=== PATIENT | female | born 1980 | race Two or more races ===

== ENCOUNTER 2024-04-11 20:54 | Emergency (ER) | payer MEDICARE, MEDICAID, SELFPAY ==
[2024-04-11 20:58] VITALS: PULSE 110; RESP 20; O2SAT 98
--- NOTE | 2024-04-11 21:04 | PC.NURSE ---
PATIENTS SON TESTED POSITIVE FOR INFLUENZA B
[2024-04-11 21:13] VITALS: BP 122/82; PULSE 96; RESP 20; TEMP 36.8; O2SAT 99; BMI 41.0
--- NOTE | 2024-04-11 21:21 | EKG_ITS ---
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1980 Requested By: Gilberto Valdovinos ([facility]) Order Number: [id number] Reading MD: Gilberto Valdovinos ([facility]) Measurements Intervals [place] Rate: 102 P: 63 TX: 184 QRS: 1 QRSD: 103 T: 59 QT: 277 QTc: 361 Interpretive Statements SINUS TACHYCARDIA POSSIBLE LEFT ATRIAL ENLARGEMENT [-0.1mV P WAVE IN V1/V2] LOW QRS VOLTAGE IN PRECORDIAL LEADS [QRS DEFLECTION < 1.0 mV IN CHEST LEADS] POSSIBLE ANTERIOR MYOCARDIAL INFARCTION , OF INDETERMINATE AGE [30 ms Q WAVE IN V3/V4, OR R < 0.2 mV IN V4] Compared to ECG 06/13/2017 10:38:08 Low QRS voltage now present Myocardial infarct finding now present Sinus rhythm no longer present T-wave abnormality no longer present /store/S0/[id number]/ecg/[id number].pdf
--- NOTE | 2024-04-11 21:21 | XR_ITS ---
Examination: AP lateral chest 2 views Technique: Sitting AP lateral chest 2 views Indications: Chest pain today. Findings: Normal heart size Minor atelectasis left base No lobar pneumonia or pulmonary edema Impression: No pneumonia or pulmonary edema
--- NOTE | 2024-04-11 21:22 | PD.EDRME ---
Rapid Medical Screening Exam RME Arrival date/time: 04/11/24 20:54 44-year-old female presents emergency department complaining of shortness of breath, chest pain, and vomiting. Time Seen by Provider: 04/11/24 21:19 Vital signs: Vital Signs Temperature 98.3 F 04/11/24 21:13 Pulse Rate 96 04/11/24 21:13 Respiratory Rate 20 04/11/24 21:13 Blood Pressure 122/82 04/11/24 21:13 Pulse Oximetry (%) 99 04/11/24 21:13 Oxygen Delivery Method Room Air 04/11/24 21:13 Vital signs reviewed by provider: Yes
[2024-04-11 21:48] LABS: Basophils % (Auto) 0 % (0-2.5); Eosinophils % (Auto) 0 % (0-10); Hematocrit 42.6 % (36.0-46.0); Hemoglobin 13.9 g/dL (12.0-16.0); Immature Granulocytes % (Auto) 1 % (0-0); Immature Granulocytes Auto 0.06 Thou/mm3 (0.00-0.00); Lymphocytes # (Auto) 0.3 Thou/mm3 (1.0-4.8); Lymphocytes % (Auto) 3 % (10-50); Mean Corpuscular HGB Conc 32.6 g/dl (31.0-37.0); Mean Corpuscular Hemoglobin 27.7 pg (25.0-35.0); Mean Corpuscular Volume 85 fL (80-100); Monocytes # (Auto) 0.6 Thou/mm3 (0.0-0.8); Monocytes % (Auto) 6 % (0-12); Neutrophils # (Auto) 7.7 Thou/mm3 (1.8-7.7); Neutrophils % (Auto) 89 % (37-80); Nucleated Red Blood Cell % 0 /100 WBC (0); Platelet Count 239 Thou/mm3 (140-440); RDW Standard Deviation 42.5 fL (36.4-46.3); Red Blood Count 5.01 Miln/mm3 (4.00-5.20); White Blood Count 8.7 Thou/mm3 (3.6-11.0)
[2024-04-11 22:12] LABS: INR 1.1 (0.9-1.3); Partial Thromboplastin Time 25.5 Seconds (22.0-36.0); Prothrombin Time 11.9 Seconds (9.0-12.2)
[2024-04-11 22:22] LABS: B-Type Natriuretic Peptide 33 pg/mL (0-100)
[2024-04-11 22:33] LABS: HCG,Qualitative Serum Negative
[2024-04-11 22:45] LABS: Influenza A Ag Negative; Influenza B Ag Positive
[2024-04-12 00:17] LABS: Alanine Aminotransferase 20 U/L (10-49); Albumin, Serum 4.8 gm/dL (3.5-5.0); Albumin/Globulin Ratio 1.3 (1.2-2.2); Alkaline Phosphatase 110 U/L (46-116); Anion Gap 10 (7-16); Aspartate Amino Transferase 30 U/L (0-34); BUN/Creatinine Ratio 18 Ratio (12-20); Bilirubin,Total 0.3 mg/dL (0.3-1.2); Blood Urea Nitrogen 7 mg/dL (9-23); Calcium 9.5 mg/dL (8.3-10.6); Calcium (Corrected) 9.5 mg/dL (8.5-10.1); Carbon Dioxide 22.7 mMol/L (20.0-31.0); Chloride 100 mMol/L (98-107); Creatinine (Component) 0.4 mg/dL (0.6-1.3); Estimated Creatinine Clearance 183.4 mL/min (>60); Globulin 3.7 gm/dL (2.3-3.5); Glucose 131 mg/dL (74-106); Magnesium 1.8 mg/dL (1.6-2.6); Osmolality,Calculated 266 (275-295); Potassium 3.5 mMol/L (3.4-5.1); Sodium 133 mMol/L (136-145); Total Protein 8.5 gm/dL (5.7-8.2); Troponin I < 0.002 ng/mL (0.0-0.045); eGFR > 60 See Note
--- NOTE | 2024-04-12 00:20 | PD.EDSOB ---
ED SOB =RME/HPI General Chief Complaint: Flu Like Symptoms Stated Complaint: FLU LIKE SYMTOMS Time Seen by Provider: 04/11/24 21:19 Source: patient Arrival date/time: 04/11/24 20:54 44-year-old female presents emergency department complaining of shortness of breath, chest pain, and vomiting. Patient reports son recently tested positive for influenza. Mode of arrival: wheelchair Limitations: physical limitation RME / HPI RME / HPI Narrative: 04/11/24 20:54 44-year-old female presents emergency department complaining of shortness of breath, chest pain, and vomiting. Related Data Home Medications ?Medication ?Instructions ?Recorded ?Confirmed carisoprodol 350 mg tablet 350 mg PO BID md #0 tabs 02/26/14 tramadol 50 mg tablet (Ultram) 50 mg PO Q4HR PRN PAIN (MODERATE 02/26/14 TO SEVERE) #0 tabs amitriptyline ##0 02/27/14 metformin 1,000 mg tablet,extended 1,000 mg PO QDAY 08/03/17 release 24hr (osmotic) sertraline 20 mg/mL oral 12.5 mg PO QDAY 08/03/17 concentrate Previous Rx's ?Medication ?Instructions ?Recorded ciprofloxacin HCl 0.3 % eye drops 2 drop ophthalmic (eye) Q4H #5 mL 08/03/17 acetaminophen 500 mg capsule 500 mg PO Q6H PRN pain #30 caps 04/12/24 ibuprofen 600 mg tablet 600 mg PO Q8H PRN pain #20 tabs 04/12/24 Allergies Allergy/AdvReac Type Severity Reaction Status Date / Time No Known Allergies Allergy Unknown Uncoded 02/27/14 13:17 Review of Systems Review of Systems Systems Reviewed: All systems reviewed, normal except as documented Constitutional Constitutional: Reports system reviewed and no additional complaints, except as documented, Denies body ache(s), Denies chills and Denies fever(s) Eyes Eyes: Reports system reviewed and no additional complaints, except as documented and Denies change in vision ENT Ears, Nose, Mouth, and Throat: Reports system reviewed and no additional complaints, except as documented, Denies disequilibrium, Denies dizziness, Denies sore throat and Denies vertigo Cardiovascular Cardiovascular: Reports system reviewed and no additional complaints, except as documented, Reports chest pain and Reports dyspnea Respiratory Respiratory: Reports system reviewed and no additional complaints, except as documented, Denies chest congestion, Denies cough and Reports dyspnea Gastrointestinal Gastrointestinal: Reports system reviewed and no additional complaints, except as documented, Denies abdominal pain, Reports nausea and Reports vomiting Musculoskeletal Musculoskeletal: Reports system reviewed and no additional complaints, except as documented, Denies abnormal gait and Denies arthralgias Integumentary/Breasts Skin/Breast: Reports system reviewed and no additional complaints, except as documented, Denies erythema, Denies rash and Denies wounds Neurologic Neurologic: Reports system reviewed and no additional complaints, except as documented, Denies abnormal gait, Denies disequilibrium, Denies dizziness and Denies vertigo Past Medical History Past Medical History CARDIAC: Negative Cardiac Disorders or Congestive Heart Failure RESPIRATORY: Negative Chronic Obstructive Pulmonary Disease (COPD) or Asthma GENITOURINARY: Negative Renal Disease ENDOCRINE: Positive Diabetes Mellitus Type 2; Negative Diabetes Mellitus Type 1 HEMATOLOGIC: Negative Sickle Cell Disease Social History SMOKING STATUS: Never smoker ED Exam General Limitations: Present physical limitation General appearance: Present alert and in no apparent distress Head Head exam: Present atraumatic Eye Eye exam: Present normal appearance, PERRL and EOMI ENT ENT exam: Present normal exam, normal oropharynx and mucous membranes moist Neck Neck exam: Present normal inspection, full ROM and trachea midline Chest Chest inspection: Present normal inspection and symmetric chest wall rise Respiratory Respiratory exam: Present normal lung sounds bilaterally Cardiovascular Cardiovascular exam: Present regular rate, normal rhythm and normal heart sounds Abdominal Exam Abdominal exam: Present soft and normal bowel sounds Extremities Exam Extremities exam: Present normal inspection and full ROM Back Exam Back exam: Present normal inspection and full ROM Neurological Exam Neurological exam: Present alert, oriented X3 and CN II-XII intact Psychiatric Psychiatric exam: Present normal affect and normal mood Skin Skin exam: Present warm, dry, intact and normal color Course Quality Measures none Orders Category Date Time Status Bedside COVID-19 Antigen Test NOW Care 04/11/24 21:22 Completed EKG (ED ONLY) *Do not use* NOW Care 04/11/24 21:21 Completed EKG (ED Only) Stat Exams 04/11/24 21:21 Draft XR chest 2V Stat Exams 04/11/24 21:21 Completed B-Type Natriuretic Peptide Stat Lab 04/11/24 21:41 Completed CBC Stat Lab 04/11/24 21:41 Completed Comprehensive Metabolic Panel Stat Lab 04/11/24 21:41 Completed Drug Screen,Urine Stat Lab 04/12/24 00:22 Completed HCG,Qualitative Serum Stat Lab 04/11/24 21:41 Completed Influenza A & B Rapid Panel Stat Lab 04/11/24 21:35 Completed Magnesium Stat Lab 04/11/24 21:41 Completed Partial Thromboplastin Time Stat Lab 04/11/24 21:41 Completed Prothrombin Time with INR Stat Lab 04/11/24 21:41 Completed Troponin I Stat Lab 04/11/24 21:41 Completed Urinalysis Stat Lab 04/12/24 00:22 Completed Ketorolac Inj [Toradol Inj] Med 04/12/24 00:19 Discontinued 30 mg IM X1 ONE Vital Signs Vital signs: Vital Signs Temperature 98.3 F 04/11/24 21:13 Pulse Rate 96 04/11/24 21:13 Respiratory Rate 20 04/11/24 21:13 Blood Pressure 122/82 04/11/24 21:13 Pulse Oximetry (%) 99 04/11/24 21:13 Oxygen Delivery Method Room Air 04/11/24 21:13 99% room air within normal limits Procedures -ED EKG Interpretation #1: Date of EK04/11/24 Time of EK:31 Rate: 102 Interpretation: Interpreted by me EKG Impression: No acute ST-T changes, No ectopy, No ischemic changes, Sinus tachycardia and Normal QRS Shortness of Breath / Dyspnea MDM Narrative MDM Narrative:: 44-year-old female presents emergency department complaining of shortness of breath, chest pain, and vomiting. Patient reports son recently tested positive for influenza. Patient appears nontoxic and is hemodynamic stable. Chest x-ray was negative for any pneumonic infiltrates. CBC was unremarkable for any leukocytosis. CMP was unremarkable for any elevated LFTs or gross electrolyte abnormalities. EKG sinus tach and normal troponin. Patient tested positive for influenza. Patient discharged and instructed to follow-up with primary care provider and return to emergency department for any worsening symptoms or as needed. Patient data External records reviewed:: [facility] previous records Clinical information provided by:: patient Social determinants that could affect healthcare access:: none Patient has the following chronic illnesses:: See chart How is presenting disease/condition affected by chronic disease/condition?: uneffected by Evaluation data The following diagnostics were reviewed and interpreted by me:: lab results, radiology exam(s) and EKG tracing(s) Lab and/or radiology exams considered but not ordered:: Ordered Interpretation Summary: Interpreted by me Medications / Prescriptions Medications or Prescriptions considered but not ordered:: Ordered Medication administrations:: Medication Administration History Discontinued Medications Ketorolac Tromethamine (Ketorolac Inj 60 Mg/2 Ml Vial) 30 mg IM X1 ONE Stop: 04/12/24 00:20 Last Admin: 04/12/24 00:39 Dose: 30 mg Documented By: EE Given Consultations Consultation(s) initiated? (list below): No Diagnosis Shortness of Breath Differential Diagnosis: acute exacerbation of chronic obstructive airways disease, congestive heart failure, community acquired pneumonia, asthma with exacerbation and pulmonary embolism Most likely diagnosis given after review of the tests above:: Influenza Admission Indicated Admission indicated?: not indicated Admission Request Was there a request for admission?: No Disposition Plan Disposition Plan: Discharge Discharge Attestation Discharge Attestation: The patient and all family members were given an opportunity to ask questions and understood the discharge instructions. Discharge instructions specifically effects, indications for sooner follow up or return to the emergency department, and the expected course of current diagnosis. Patient condition: Stable Discharge Plan Plan Patient Disposition: HOME (Self Care) Disposition Comment: Stable Prescriptions/Referrals Prescriptions/Med Rec: New ibuprofen 600 mg tablet 600 mg PO Q8H PRN (Reason: pain) Qty: 20 0RF acetaminophen 500 mg capsule 500 mg PO Q6H PRN (Reason: pain) Qty: 30 0RF No Action ciprofloxacin HCl 0.3 % drops 2 drop OPHTHALMIC Q4H Qty: 5 0RF Rx Instructions: 2 drops Q4 hours while awake x 10 days metformin 1,000 mg tablet extended release 24 hr 1,000 mg PO QDAY sertraline 20 mg/mL concentrate 12.5 mg PO QDAY carisoprodol 350 MG tablet 350 mg PO BID Qty: 0 tramadol [Ultram] 50 MG tablet 50 mg PO Q4HR PRN (Reason: PAIN (MODERATE TO SEVERE)) Qty: 0 Patient Comments: FOR PAIN, NOT TO EXCEED 8 TABS IN 24 HRS amitriptyline Qty: 0 Referrals: Anuel Escudero([facility])MD [Primary Care Provider] - In 1 week Problem List Clinical Impression: Influenza Patient/Caregiver Discharge Instructions Discharge Activity: activity as tolerated Education Materials: ED Influenza (Adult) Additional Instructions: Drink plenty of fluids and stay hydrated. Get plenty of rest and take Tylenol or Motrin as needed for fever or pain. Follow-up with primary care provider in 2 to 3 days. Return to the emergency department for any worsening symptoms or as needed. 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 Sauer
[2024-04-12] MEDS: KETOROLAC INJ 60 MG/2 ML VIAL 30 MG IM (00:39)
[2024-04-12 01:06] LABS: Collection Type, Urine Clean Catch; WBC,Urine 0 /hpf (0-5)
[2024-04-12 01:21] LABS: Bilirubin,Urine Negative (Negative); Blood,Urine 1+ (Negative); Clarity,Urine Clear (Clear/Hazy); Color,Urine Yellow (Lt Yel-Yel); Glucose, Urine Negative (Negative); Ketones,Urine 4+ (Negative); Leukocyte Esterase,Urine Negative (Negative); Nitrite,Urine Negative (Negative); Protein,Urine 1+ (Neg - Trace); RBC,Urine 5 /hpf (0-3); Specific Gravity,Urine 1.028 (1.001-1.035); Squamous Epithelial Cell,Urine 1 /hpf (0-5)
[2024-04-12 01:44] LABS: Amphetamine/Methamp Scrn,U Negative (Negative); Barbiturate Screen,Urine Negative (Negative); Benzodiazepines Screen,Urine Negative (Negative); Benzoylecgonine Screen, Ur Negative (Negative); Fentanyl Screen,Urine Negative (Negative); Opiate Screen,Urine Negative (Negative); THC Screen,Urine Positive (Negative)
== END 2024-04-12 01:22 | disposition home or self-care (01) ==
PROVIDERS: Emergency Provider Emergency Medicine; PCP Family Medicine
DX: J11.1 Influenza due to unidentified influenza virus with other respiratory manifestations (principal); R00.0 Tachycardia, unspecified
CPT/HCPCS: 36415; 71046; 80053; 80307; 81001; 83735; 83880; 84484; 84703; 85025; 85610; 85730; 87502; 87811; 93005; 96372; 99283; J1885

== ENCOUNTER → 2024-05-25 | Outpatient (CLI) | payer MEDICARE, MEDICAID, SELFPAY ==
[2024-05-25 11:17] LABS: Basophils % (Auto) 1 % (0-2.5); Eosinophils # (Auto) 0.1 Thou/mm3 (0.0-0.5); Eosinophils % (Auto) 2 % (0-10); Hematocrit 37.7 % (36.0-46.0); Hemoglobin 12.4 g/dL (12.0-16.0); Immature Granulocytes % (Auto) 0 % (0-0); Immature Granulocytes Auto 0.03 Thou/mm3 (0.00-0.00); Lymphocytes # (Auto) 2.3 Thou/mm3 (1.0-4.8); Lymphocytes % (Auto) 31 % (10-50); Mean Corpuscular HGB Conc 32.9 g/dl (31.0-37.0); Mean Corpuscular Hemoglobin 28.1 pg (25.0-35.0); Mean Corpuscular Volume 85 fL (80-100); Monocytes # (Auto) 0.5 Thou/mm3 (0.0-0.8); Monocytes % (Auto) 7 % (0-12); Neutrophils # (Auto) 4.6 Thou/mm3 (1.8-7.7); Neutrophils % (Auto) 60 % (37-80); Nucleated Red Blood Cell % 0 /100 WBC (0); Platelet Count 325 Thou/mm3 (140-440); RDW Standard Deviation 43.9 fL (36.4-46.3); Red Blood Count 4.42 Miln/mm3 (4.00-5.20); White Blood Count 7.5 Thou/mm3 (3.6-11.0)
[2024-05-25 11:30] LABS: Glucose Estimated Average 94 mg/dL (80-131); Hemoglobin A1C 4.9 % Hgb (4.8-6.0)
[2024-05-25 11:39] LABS: Folate 8.42 ng/mL (>5.38); Vitamin B12 594 pg/mL (211-911); Vitamin D 25 Hydroxy Total 23.6 ng/mL (7.3-40.2)
[2024-05-25 11:43] LABS: Alanine Aminotransferase 33 U/L (10-49); Albumin, Serum 4.1 gm/dL (3.5-5.0); Albumin/Globulin Ratio 1.2 (1.2-2.2); Alkaline Phosphatase 131 U/L (46-116); Anion Gap 8 (7-16); Aspartate Amino Transferase 49 U/L (0-34); BUN/Creatinine Ratio 33 Ratio (12-20); Bilirubin,Total 0.7 mg/dL (0.3-1.2); Blood Urea Nitrogen 10 mg/dL (9-23); Calcium 9.3 mg/dL (8.3-10.6); Calcium (Corrected) 9.3 mg/dL (8.5-10.1); Carbon Dioxide 26.9 mMol/L (20.0-31.0); Chloride 103 mMol/L (98-107); Cholesterol 156 mg/dL (132-200); Creatinine (Component) 0.3 mg/dL (0.6-1.3); Free T3 3.4 pg/mL (2.3-4.2); Free T4 (Free Thyroxine) 1.14 ng/dL (0.89-1.76); Globulin 3.4 gm/dL (2.3-3.5); Glucose 84 mg/dL (74-106); HDL Cholesterol 77 mg/dL (40-60); LDL Cholesterol,Calculated 62 mg/dL (0-130); Osmolality,Calculated 273 (275-295); Potassium 4.1 mMol/L (3.4-5.1); Sodium 138 mMol/L (136-145); Thyroid Stimulating Hormone 2.23 uIU/mL (0.55-4.78); Total Protein 7.5 gm/dL (5.7-8.2); Triglycerides 83 mg/dL (30-150); eGFR > 60 See Note
[2024-05-25 11:46] LABS: Ferritin 18 ng/mL (7.3-270.7); Iron 81 mcg/dL (50-170); Total Iron Binding Capacity 360 mcg/dL (250-425)
== END | disposition home or self-care (01) ==
PROVIDERS: PCP Family Medicine; Referring Provider Nurse Practitioner Family; Visit Provider Nurse Practitioner Family
DX: E78.5 Hyperlipidemia, unspecified (principal); R53.81 Other malaise; Z13.29 Encounter for screening for other suspected endocrine disorder; Z13.1 Encounter for screening for diabetes mellitus
CPT/HCPCS: 36415; 80053; 80061; 82306; 82607; 82728; 82746; 83036; 83540; 83550; 84439; 84443; 84481; 85025